=== PATIENT | male | born 1975 | race Caucasian/White ===

== ENCOUNTER 2017-01-10 02:34 | Emergency (ER) | payer SELFPAY ==
[~2017-01-10] VITALS: Ht 172.7 cm; Wt 80.3 kg
[2017-01-10] MEDS ORDERED: methylPREDNISolone SOD SUCC 125 MG/2 ML ONE (02:37)
[2017-01-10] MEDS ORDERED: ALBUTEROL/IPRATROPIUM 2.5MG/0.5MG, 3 ML ONE ×2 (02:41)
[2017-01-10 02:57] LABS: HEMOGLOBIN 15.7 g/dL (13.7-18.0)
[2017-01-10] MEDS ORDERED: ALBUTEROL SULFATE 2.5 MG/3 ML NPPB ONE ×2 (03:00→04:30)
[2017-01-10] MEDS ORDERED: MAGNESIUM SULFATE PMX 2GM/50ML 50 ML IV ONE (03:00)
[2017-01-10] MEDS ORDERED: SODIUM CHLORIDE FLUSH 10ML SYR IVF ONE (03:00)
[2017-01-10] MEDS ORDERED: methylPREDNISolone SOD SUCC 125 MG/2 ML IVPush ONE (03:00)
[2017-01-10] MEDS ORDERED: SODIUM CHLORIDE 0.9% 1,000ML IVBOLUS ONE (03:00)
[2017-01-10 03:06] LABS: ASPARTATE AMINO TRANSFERASE 12 U/L (15-37); BLOOD UREA NITROGEN 15 mg/dL (7-18)
[2017-01-10 04:11] VITALS: BP 131/82
[2017-01-10] MEDS ORDERED: ALBUTEROL/IPRATROPIUM 2.5MG/0.5MG, 3 ML NPPB ONE (04:30)
== END 2017-01-10 05:31 | disposition left against medical advice (07) ==
LOC: ED 03:01
DX: J45.51 Severe persistent asthma with (acute) exacerbation (principal); J96.01 Acute respiratory failure with hypoxia
CPT/HCPCS: 36415; 71010; 80053; 85025; 93005; 94640; 96365; 96366; 96375; 99291; J2930; J3475; J7030; J7613

== ENCOUNTER 2018-11-23 22:35 | Emergency (ER) | payer SELFPAY ==
[~2018-11-23] VITALS: Ht 172.7 cm; Wt 94.0 kg
[2018-11-23] MEDS ORDERED: ALBUTEROL SULFATE 2.5 MG/3 ML NPPB ONE (23:00)
[2018-11-23] MEDS ORDERED: ALBUTEROL SULFATE 2.5 MG/3 ML ONE (23:14)
[2018-11-23 23:28] LABS: BASOPHILS # (AUTO) 0.01 x10^3/uL (0-0.1); BASOPHILS % (AUTO) 0 % (0-1); EOSINOPHILS # (AUTO) 0.01 x10^3/uL (0-0.4); EOSINOPHILS % (AUTO) 0 % (1-7); LYMPHOCYTES # (AUTO) 0.43 x10^3/uL (1-3.4); LYMPHOCYTES % (AUTO) 6 % (22-44); MD NO; MEAN CORPUSCULAR HEMOGLOBIN 32.3 pg (27.5-34.5); MEAN CORPUSCULAR HGB CONC 32.9 g/dL (33.2-36.2); MEAN PLATELET VOLUME 8.4 fL (7.4-10.4); MONOCYTES # (AUTO) 0.37 x10^3/uL (0.2-0.8); MONOCYTES % (AUTO) 5 % (2-9); NEUTROPHILS # (AUTO) 6.21 x10^3/uL (1.8-6.8); NEUTROPHILS % (AUTO) 89 % (42-75); PLATELET COUNT 209 x10^3/uL (130-400); RED BLOOD COUNT 5.07 x10^6/uL (4.38-5.82)
[2018-11-23 23:32] LABS: RAPID INFLUENZA A POSITIVE (Negative)
[2018-11-23 23:33] LABS: RAPID INFLUENZA B Negative (Negative)
[2018-11-23 23:38] LABS: ALBUMIN 4.2 g/dL (3.4-5.0); ANION GAP 8 mmol/L (5-15); CALCIUM 8.6 mg/dL (8.5-10.1); CHLORIDE 104 mmol/L (98-107); CREATININE 1.23 mg/dL (0.7-1.3)
[2018-11-23 23:42] LABS: TROPONIN I < 0.015 ng/mL (0.000-0.045)
[2018-11-24 01:02] VITALS: BP 152/77
--- NOTE | 2018-11-24 01:30 | NUR ---
TASK RN: PT SITTING UP IN [place] NOTED. RESPIRATIONS EVEN/UNLABORED. DC EDUCATION PROVIDED, PT DEMONSTRATES UNDERSTANDING. PT AMBULATED STEADILY TO DC WITH RN AND FRIEND
== END 2018-11-24 01:33 | disposition home or self-care (01) ==
LOC: ED 22:56
DX: J10.1 Influenza due to other identified influenza virus with other respiratory manifestations (principal); J45.31 Mild persistent asthma with (acute) exacerbation; F17.200 Nicotine dependence, unspecified, uncomplicated; H16.002 Unspecified corneal ulcer, left eye
CPT/HCPCS: 36415; 71045; 80048; 82040; 83605; 84145; 84484; 85025; 87040; 87400; 93005; 94640; 99284; J7512; J7613